=== PATIENT | female | born 1970 | race Caucasian/White ===

== ENCOUNTER 2020-07-31 12:34 | Emergency (ER) | payer OTHER ==
[~2020-07-31] VITALS: Ht 167.6 cm; Wt 79.0 kg
[~2020-07-31 12:34] MED LIST: DULO20CA50 PO; LORA-254 PO
[2020-07-31 12:42] VITALS: BP 143/86
[2020-07-31] MEDS ORDERED: FLUORESCEIN 1MG EYE STRIP. OS ONE (13:00)
[2020-07-31] MEDS ORDERED: TETRACAINE 0.5% OPHTH SOLUTION 4ML BOTTLE. OS ONE (13:00)
[2020-07-31] MEDS ORDERED: ERYT1OIN6 OP (13:40)
--- NOTE | 2020-07-31 13:41 | PHYS DOC ---
Past History Past Medical History: Anxiety Past Surgical History: Appendectomy, Additional Smoking Information: Vapes Alcohol Use: None Drug Use: None Adult General Chief Complaint Chief Complaint: EYE PROBLEMS HPI HPI Patient is a 49-year-old female with history of anxiety presenting today with ri ght eye discomfort. Patient states she accidentally poked her right eye with a straw. Review of Systems Review of Systems Constitutional: Denies fever or chills [] Eyes: Reports right eye discomfort. Denies change in visual acuity, redness Musculoskeletal: Denies back pain or joint pain [] Integument: Denies rash or skin lesions [] Neurologic: Denies headache, focal weakness or sensory changes [] All other systems were reviewed and found to be within normal limits, except as documented in this note. Current Medications Current Medications Current Medications Medications (Trade) Dose Ordered Sig/Don Start Time Stop Time Status Last Admin Dose Admin Fluorescein Sodium (Ful-Maryjo 1mg) 1 strip 1X ONCE 07/31/20 13:00 07/31/20 13:01 DC 07/31/20 13:00 1 STRIP Tetracaine HCl (Tetracaine) 1 drop 1X ONCE 07/31/20 13:00 07/31/20 13:01 DC 07/31/20 13:00 1 DROP Allergies Allergies Allergies Coded Allergies Type Severity Reaction Last Updated Verified No Known Drug Allergies 05/17/15 No Physical Exam Physical Exam Constitutional: Well developed, well nourished, no acute distress, non-toxic appearance. [] HENT: Normocephalic, atraumatic, bilateral external ears normal, oropharynx moist, no oral exudates, nose normal. [] Eyes: PERRLA, EOMI, right conjunctiva is slightly injected, clear tearing noted. See eye exam and a foreign object removal Skin: Warm, dry, no erythema, no rash. [] Back: No tenderness, no CVA tenderness. [] Extremities: No tenderness, no cyanosis, no clubbing, ROM intact, no edema. [] Neurologic: Alert and oriented X 3, normal motor function, normal sensory function, no focal deficits noted. [] Psychologic: Affect normal, judgement normal, mood normal. [] Current Patient Data Vital Signs Vital Signs Date Time Temp Pulse Resp B/P (MAP) Pulse Ox O2 Delivery O2 Flow Rate FiO2 07/31/20 12:42 97.6 85 16 143/86 (105) 99 Room Air EKG EKG [] Radiology/Procedures Radiology/Procedures Indication: Right eye injury Procedure: The area of the foreign body was right eye. Local anesthesia over the foreign body site was tetracaine, the eye was stained with fluorescein. No significant corneal abrasion was noted. The patient's tetanus status was updated The patient tolerated the procedure very well Complications: none Heart Score Risk Factors: Risk Factors: DM, Current or recent (<one month) smoker, HTN, HLP, family history of CAD, obesity. Risk Scores: Risk Factors: DM, Current or recent (<one month) smoker, HTN, HLP, family history of CAD, obesity. Course & Med Decision Making Course & Med Decision Making Pertinent Labs and Imaging studies reviewed. (See chart for details) This is a 49-year-old female patient presented to the ED today complaining of right eye discomfort after accidentally poking herself with a stroke. Tetanus is up-to-date. No obvious corneal abrasion was noted. Discharged vancomycin and instructions to follow-up with an mechanical maintenance. Dragon Disclaimer Dragon Disclaimer This electronic medical record was generated, in whole or in part, using a voice recognition dictation system. Departure Departure: Impression: Primary Impression: Contusion, eye, right Disposition: 01 DC HOME SELF CARE/HOMELESS Condition: STABLE Referrals: CONSUELO MANCINI (PCP) follow up with your doctor and mechanical maintenance in 1 week Patient Instructions: Eye Contusion, [id number] Additional Instructions: You were evaluated in the emergency room, please follow-up with your mechanical maintenance in 1-2 weeks. Use the eye medicine as ordered. You can take tylenol or ibuprofen as needed for pain Scripts Erythromycin Base (Erythromycin) 1 Gm Oint...g. 0.5 GM OP Q4HRS W/A for 7 Days, #1 MISC Prov: PAVITHRA ARAUZ APRN 07/31/20 Problem Qualifiers Primary Impression: Contusion, eye, right Encounter type: initial encounter Qualified Codes: S05.11XA - Contusion of eyeball and orbital tissues, right eye, initial encounter PAVITHRA ARAUZ APRN Jul 31, 2020 13:41
== END 2020-07-31 13:52 | disposition home or self-care (01) ==
LOC: ER 12:34
DX: S00.11XA Contusion of right eyelid and periocular area, initial encounter (principal); X58.XXXA Exposure to other specified factors, initial encounter; Y93.89 Activity, other specified; Y92.89 Other specified places as the place of occurrence of the external cause; Y99.8 Other external cause status
CPT/HCPCS: 99283

== ENCOUNTER → 2020-09-04 | Outpatient (CLI) | payer OTHER ==
[~2020-09-04] MED LIST changes: +ERYT1OIN6 OP; +IOHEXOL 240 MG/ML 50ML VIAL. ONE; +IOHEXOL 240 MG/ML 50ML VIAL. PO ONE; +IOHEXOL 300 MG/ML 75 ML VIAL. IV ONE
--- NOTE | 2020-09-04 13:36 | RAD ---
Exam Date: 09/04/2020 12:[address] ABDOMEN+PELVIS W Indication: Reason: ABDOMEN PAIN, HEMATURIA, PELVIC PAIN- GAVE OMNI 300 75ML / Spl. Instructions: / History: TECHNIQUE: CT examination of the abdomen and pelvis was performed following the administration of or al and nonionic intravenous contrast. One or more of the following dose reduction techniques were ut ilized: *Automated exposure control (AEC) *Adjustment of mA and/or kV according to patient size *Use of iterative reconstruction technique *CT scan done according to ALARA, or ALARA/IMAGE GENTLY FINDINGS: The visualized lung bases are clear. The liver, gallbladder, spleen, pancreas, adrenal glands and kidneys are normal. Urinary bladder is normal in appearance. Uterus is enlarged and heterogeneous consistent with fibroid s. There is no bowel obstruction or inflammation. No evidence for acute appendicitis. Mild atherosclerotic calcifications are seen. No lymphadenopathy or ascites is seen. Degenerative changes are seen in the spine. IMPRESSION: No evidence of acute intra-abdominal pathology. Electronically signed by: Howie Joseph MD (09/04/2020 1:34 PM) [id number]
== END ==
LOC: CT 11:57
PROVIDERS: ATTEND Family Medicine
DX: N85.2 Hypertrophy of uterus (principal); R35.0 Frequency of micturition; R10.9 Unspecified abdominal pain; N30.01 Acute cystitis with hematuria; R68.81 Early satiety; R14.0 Abdominal distension (gaseous); R10.2 Pelvic and perineal pain; F41.0 Panic disorder [episodic paroxysmal anxiety]
CPT/HCPCS: 74177; Q9967